=== PATIENT | female | born 1965 | race Two or more races ===

== ENCOUNTER 2018-03-31 10:09 | Emergency (ER) | payer MEDICAID ==
[~2018-03-31] VITALS: Ht 152.4 cm; Wt 63.5 kg
[2018-03-31 10:35] VITALS: BP 148/77
[2018-03-31] MEDS ORDERED: Norco 5mg/325mg tab ORAL ONE (10:45)
[2018-03-31] MEDS ORDERED: BACITRACIN ZIN1 EACH TOPIC (10:50)
[2018-03-31] MEDS ORDERED: BENADRYL25 MG ORAL (10:50)
[2018-03-31] MEDS ORDERED: CEPHALEXIN500 MG ORAL (10:50)
[2018-03-31] MEDS ORDERED: DiphenhydrAMINE 25mg/10ml Elixir ORAL ONE (11:00)
[2018-03-31] MEDS ORDERED: Bacitracin Oint UD TOPIC ONE (11:00)
[2018-03-31 11:04] VITALS: BP 148/77
--- NOTE | 2018-03-31 13:59 | Emergency Room Report ---
History of Present Illness General Chief Complaint: Skin Rash/Abscess Source: Patient Present Illness HPI Patient 52-year-old female presented after increased lower extremity itching and swelling. Patient had recent noted some insect bites. She had been reported having increased blistering and had been using Neosporin as well as had a hydrocortisone cream without any improvement. She denies any fever. She denies other trauma.As she reports having increased generalized itching. Allergies: Coded Allergies: Pork (Verified Allergy, Severe, Rash, 03/31/18) Patient History Past Medical History: see triage record Last Menstrual Period: na Reviewed Nursing Documentation: PMH: Agreed; PSxH: Agreed Nursing Documentation-PMH Past Medical History: No History, Except For Hx Hypertension: Yes Review of Systems All Other Systems: negative except mentioned in HPI Physical Exam Vital Signs Date Time Temp Pulse Resp B/P (MAP) Pulse Ox O2 Delivery O2 Flow Rate FiO2 03/31/18 10:22 98.0 75 18 148/77 98 Room Air 98.1 General Appearance: well appearing, no apparent distress, alert, GCS 15 Head: normocephalic, atraumatic ENT: hearing grossly normal, normal voice Neck: full range of motion, supple Respiratory: no respiratory distress, speaking full sentences Musculoskeletal: no calf tenderness Neurologic: normal inspection, alert, oriented x3, responsive, house nurse III-XII nml as tested, motor strength/tone normal, normal gait Psychiatric: mood/affect normal Skin: other - multiple excoriated bites to lower extremity with minimal erythema slight swelling Medical Decision Making Diagnostic Impression: Primary Impression: Infected insect bite ER Course Patient presented for skin rash. Differential diagnosis included was not limited to contact dermatitis, infected insect bite, allergic reaction, Soto- Hussain, among others. Patient has a benign exam and does not appear to require any further imaging or laboratory testing at this time. The patient is advised to follow up with primary care doctor in 2 days. Patient is advised to return if any worsening condition or if any changes in status that are concerning. This report is dictated with [employer] director [employer] music [employer] software which may occasionally lead to discrepancies related to use of this software. Last Vital Signs Date Time Temp Pulse Resp B/P (MAP) Pulse Ox O2 Delivery O2 Flow Rate FiO2 03/31/18 11:04 98.1 87 18 148/77 98 Room Air 208.6 Status: improved Disposition: HOME, SELF-CARE Condition: Stable Scripts Bacitracin Zinc* (BACITRACIN ZINC*) 1 Each Packet 1 APPLIC TOPIC THREE TIMES A DAY, #30 PACKET Prov: Carlos Frankel MD 03/31/18 Diphenhydramine Hcl* (BENADRYL*) 25 Mg Capsule 25 MG ORAL Q6H PRN for Itching, #30 CAP Prov: Carlos Frankel MD 03/31/18 Cephalexin* (KEFLEX*) 500 Mg Capsule 500 MG ORAL EVERY 6 HOURS, #28 CAP Prov: Carlos Frankel MD 03/31/18 Referrals: NOT CHOSEN IPA/,REFERRING (PCP) Patient Instructions: Insect Bite, [id number] Carlos Frankel MD Mar 31, 2018 13:59
== END 2018-03-31 11:04 | disposition home or self-care (01) ==
LOC: EMR 10:40
DX: S80.862A Insect bite (nonvenomous), left lower leg, initial encounter (principal); S80.861A Insect bite (nonvenomous), right lower leg, initial encounter; W57.XXXA Bitten or stung by nonvenomous insect and other nonvenomous arthropods, initial encounter; Y92.9 Unspecified place or not applicable; I10 Essential (primary) hypertension
CPT/HCPCS: 99284